=== PATIENT | male | born 1995 | race Caucasian/White ===

== ENCOUNTER 2022-08-21 13:32 | Inpatient (IN) | payer MEDICAID ==
[~2022-08-21] VITALS: Ht 180.3 cm; Wt 136.1 kg
--- NOTE | 2022-08-21 13:50 | NUR ---
[email or web address], medical screening exam in progress
[2022-08-21] MEDS ORDERED: OMEP20TA5 PO (13:56)
[2022-08-21] MEDS ORDERED: FAMOTIDINE. 20 MG/2 ML VIAL IV ONE ×2 (14:00→14:15)
[2022-08-21] MEDS ORDERED: LIDOCAINE VISCUS 2% 15 ML UDC MM ONE (14:00)
[2022-08-21] MEDS ORDERED: MAG HYDROX/AL HYDROX/SIMETH 30 ML LIQUID UDC PO ONE (14:00)
[2022-08-21] MEDS ORDERED: IV NORMAL SALINE 1000 ML BAG IV ONE (14:00)
[2022-08-21] MEDS ORDERED: ONDANSETRON 4 MG/2 ML VIAL IV ONE (14:00)
[2022-08-21 14:12] LABS: HEMATOCRIT 46.7 % (36.7-47.1); MEAN CORPUSCULAR HEMOGLOBIN 30.1 uug (23.8-33.4); PLATELET COUNT (AUTO) 190 K/uL (152-348)
[2022-08-21] MEDS ORDERED: ONDANSETRON 4 MG/2 ML VIAL ONE (14:14)
[2022-08-21] MEDS ORDERED: LIDOCAINE VISCUS 2% 15 ML UDC ONE (14:15)
[2022-08-21] MEDS ORDERED: MAG HYDROX/AL HYDROX/SIMETH 30 ML LIQUID UDC ONE (14:15)
[2022-08-21 14:22] LABS: *BILIRUBIN,URIN 1+ (NEGATIVE); *CLARITY,URINE CLEAR (CLEAR); *COLOR,URINE YELLOW (YELLOW); *KETONES,URINE NEGATIVE (NEGATIVE); LEUKOCYTE ESTERASE ,URINE NEGATIVE (NEGATIVE); NITRITE, URINE NEGATIVE (NEGATIVE); PH,URINE 6.5 (5.0-8.0); UGLUCOSE NEGATIVE (NEGATIVE)
[2022-08-21 14:23] LABS: *BLOOD, URINE TRACE (NEGATIVE)
[2022-08-21 14:41] LABS: BILIRUBIN,DIRECT 0.2 mg/dL (0.0-0.2); BILIRUBIN,TOTAL 0.5 mg/dL (0.2-1.0); CREATININE 1.1 mg/dL (0.6-1.3); POTASSIUM 3.4 mmol/L (3.5-5.1); TOTAL PROTEIN, SERUM 7.1 g/dL (6.4-8.2)
--- NOTE | 2022-08-21 15:21 | NUR ---
Patient is resting comfortably on gurney, NAD.
--- NOTE | 2022-08-21 15:54 | NUR ---
"Plan to admit" per Dr Ponce. ER registration/admitting staff Silvia notified.
--- NOTE | 2022-08-21 16:01 | NUR ---
Patient wants to leave MD [email or web address].
[2022-08-21] MEDS ORDERED: ONDANSETRON 4 MG/2 ML VIAL IV PRN (16:45)
[2022-08-21] MEDS ORDERED: REMEDY ESSENTIAL ZINC PASTE 113 GM TP PRN (16:45)
[2022-08-21] MEDS ORDERED: IV D5 1/2 NS 1000 ML 1,000 ML IV PRN (16:45)
--- NOTE | 2022-08-21 16:48 | NUR ---
Patient changed his mind and decided to stay in the hospital for admission.
[2022-08-21] MEDS ORDERED: LIDOCAINE 2% (GLYDO= UROJET) 10 ML JELLY MM ONE ×2 (17:15→17:43)
[2022-08-21 18:05] LABS: BACTERIA,URINE NONE SEEN /HPF (NONE SEEN); MUCUS,URINE FEW /LPF (0-FEW); SQUAMOUS EPITHELIAL CELL,UR FEW /HPF (NONE SEEN); WBC,URINE 0-3 /HPF (0-3)
--- NOTE | 2022-08-21 18:19 | NUR ---
NGT clamped for now during trasnfer to 3rd floor. RN crusher supervisor Lina transported the patient herself. Patient said that abdominal pains are better after the NGT insertion with suction.
--- NOTE | 2022-08-21 18:34 | NUR ---
26 year old ,male received from er via wheel chair to room 327 for sbo ,pt is axox4 call light with in reach ,orient the pt to the room .md notified for admission orders
[2022-08-21 21:07] VITALS: BP 142/81
--- NOTE | 2022-08-22 03:33 | NUR ---
PATIENT AWAKE C/O PAIN IN ABDOMEN AND THROAT DUE TO NGT. CALLED OUT [facility], FOR PAIN MEDICATION.
[2022-08-22] MEDS ORDERED: MORPHINE SULFATE 2 MG/1 ML DISP.SYRIN IV PRN (03:45)
[2022-08-22 04:35] VITALS: BP 104/51
--- NOTE | 2022-08-22 06:19 | NUR ---
patient awake in bed. NGT continued at low intermittent suction. no c/o pain at this time. all needs attended. will continue to monitor and assess.
[2022-08-22 07:06] LABS: BILIRUBIN,TOTAL 0.4 mg/dL (0.2-1.0); CREATININE 0.9 mg/dL (0.6-1.3); MAGNESIUM 2.3 mg/dL (1.8-2.4); PHOSPHOROUS 2.9 mg/dL (2.5-4.9); POTASSIUM 3.2 mmol/L (3.5-5.1); TOTAL PROTEIN, SERUM 6.5 g/dL (6.4-8.2)
[2022-08-22 07:07] LABS: HEMATOCRIT 43.5 % (36.7-47.1); MEAN CORPUSCULAR HEMOGLOBIN 29.8 uug (23.8-33.4); MEAN CORPUSCULAR VOLUME 87.8 fL (73.0-96.2); PLATELET COUNT (AUTO) 190 K/uL (152-348)
[2022-08-22] MEDS: POTASSIUM CHLORIDE 50 ML IV SCH ×4 (10:30→13:30)
[2022-08-22] MEDS ORDERED: DIATR MEGLU/DIATRIZOATE SODIUM 30 ML BOTTLE ONE (10:45)
[2022-08-22 12:08] VITALS: BP 119/80
[2022-08-22] MEDS ORDERED: POTASSIUM CHLORIDE 20 MEQ TAB.PRT.SR PO ONE (15:15)
[2022-08-22 16:49] VITALS: BP 109/74
--- NOTE | 2022-08-22 18:27 | NUR ---
dc orders received noted a nd carried out,dc heplock per md orders.dc instruction and education given to the pt ,pt said he will follow up with his pcp .pt left the facility via private car in stable condition
== END 2022-08-22 18:31 | disposition home or self-care (01) | DRG 247 ==
LOC: EDBD 13:32 → ER 13:32 → MEDSURG3 18:08
PROVIDERS: ADMIT Internal Medicine; ATTEND Nurse Practitioner Acute Care
DX: K56.609 Unspecified intestinal obstruction, unspecified as to partial versus complete obstruction (principal); E66.9 Obesity, unspecified; Z87.11 Personal history of peptic ulcer disease; Z68.41 Body mass index [BMI] 40.0-44.9, adult; Z20.822 Contact with and (suspected) exposure to COVID-19; Z71.3 Dietary counseling and surveillance
CPT/HCPCS: 36415; 71045; 74250; 83690; 83735; 84100; 85025; A4663; G0378; J2270; J2405; J3490; J7040; Q9963